=== PATIENT | female | born 1965 | race African-American/Black ===

== ENCOUNTER 2017-12-26 09:50 | Inpatient (IN) ==
[2017-12-26] MEDS ORDERED: SODIUM CHLORIDE 0.9% 2,000 ML IV STA (10:49)
[2017-12-26] MEDS ORDERED: KETOROLAC 30 MG/1 ML VIAL IV STA (10:51)
[2017-12-26] MEDS ORDERED: CLINDAMYCIN INJ 600 MG in PREMIX 1 EACH IV STA (10:52)
[2017-12-26] MEDS ORDERED: MORPHINE 2 MG/1 ML SYRINGE IV STA (10:58)
[2017-12-26] MEDS ORDERED: CLINDAMYCIN INJ 50 ML IV ONE (11:01)
[2017-12-26] MEDS ORDERED: KETOROLAC 30 MG/1 ML VIAL ONE (11:02)
[2017-12-26] MEDS ORDERED: MORPHINE 4 MG/1 ML VIAL ONE (11:02)
[2017-12-26 11:25] LABS: Basophils % 0.4 % (0.0-0.8); Eosinophils # 0.1 10*3/uL (0.0-0.87); Eosinophils % 1.3 % (0.00-10.9); Hematocrit 38.5 VOL% (35.7-47.0); Hemoglobin 12.4 GM/DL (12.0-16.0); Immature Granulocytes % 0.2 %; Immature Granulocytes Absolute 0.02 #; Lymphocytes % 24.6 % (21.3-54.2); Mean Corpuscular HGB Conc 32.2 GM/DL (32-36); Mean Corpuscular Hemoglobin 25 PG (27-34); Mean Corpuscular Volume 78.6 FL (87-102); Mean Platelet Volume 11.3 FL (9.6-12.0); Monocytes # 0.6 10*3/uL (0.11-0.8); Monocytes % 7.2 % (1.7-12.7); Neutrophils # 5.4 10*3/uL (1.4-7.4); Neutrophils % 66.3 % (38.7-73.9); Platelet Count 254 T/CUMM (130-400); Red Cell Distribution Width 13.3 % (9.3-17.3); White Blood Count 8.2 T/CUMM (4-12)
[2017-12-26 11:42] LABS: Calcium 9.4 MG/DL (8.5-10.1)
[2017-12-26 11:43] LABS: Osmolality,Calculated 280.5 MOS/KG (273-304); Potassium 3.6 MMOL/L (3.5-5.1)
[2017-12-26] MEDS: METOPROLOL TARTRATE 5 MG/5 ML VIAL IV SCH ×2 (11:44→12:38)
[2017-12-26 12:01] LABS: Lactic Acid 1.6 MMOL/L (0.4-2.0)
[2017-12-26] MEDS ORDERED: MEPERIDINE 50 MG/1 ML VIAL IM STA (12:41)
[2017-12-26] MEDS ORDERED: hydrALAZINE 20 MG/1 ML VIAL IV STA (12:41)
[2017-12-26] MEDS ORDERED: MEPERIDINE 50 MG/1 ML VIAL ONE (12:44)
[2017-12-26] MEDS ORDERED: hydrALAZINE 20 MG/1 ML VIAL ONE (12:44)
[2017-12-26] MEDS ORDERED: HYDROmorphone 2 MG/1 ML VIAL IV STA (14:14)
[2017-12-26] MEDS ORDERED: HYDROmorphone 2 MG/1 ML VIAL ONE (14:16)
[2017-12-26] MEDS ORDERED: LORazepam 1 MG TABLET PO STA (15:16)
[2017-12-26] MEDS ORDERED: LORazepam 1 MG TABLET ONE (15:49)
[2017-12-26] MEDS ORDERED: DEXTROSE 50% 25 GM/50 ML VIAL IV PRN (15:51)
[2017-12-26] MEDS ORDERED: ACETAMINOPHEN 325 MG TABLET PO PRN (15:51)
[2017-12-26] MEDS ORDERED: GLUCAGON 1 MG VIAL IM PRN (15:51)
[2017-12-26] MEDS ORDERED: ONDANSETRON 4 MG/2 ML VIAL ONE (15:56)
[2017-12-26] MEDS ORDERED: CYCLOBENZAPRINE 10 MG TABLET PO PRN (15:57)
[2017-12-26] MEDS ORDERED: LORazepam 2 MG/1 ML VIAL ONE (15:57)
[2017-12-26] MEDS ORDERED: LABETALOL 20 MG/4 ML SYRINGE IV PRN (16:03)
[2017-12-26] MEDS: INSULIN LISPRO 100 UNIT/ML SUBCUT SCH ×2 (17:02→20:37)
[2017-12-26] MEDS ORDERED: INSULIN LISPRO 100 UNIT/ML ONE (17:04)
[2017-12-26] MEDS ORDERED: CLINDAMYCIN INJ 600 MG in PREMIX 1 EACH IV SCH (19:00)
[2017-12-26] MEDS: MEROPENEM 1,000 MG in SODIUM CHLORIDE 0.9% 100 ML IV SCH (19:07)
[2017-12-26] MEDS: HYDROmorphone 2 MG/1 ML VIAL IV PRN (20:52)
[2017-12-27] MEDS: MEROPENEM 1,000 MG in SODIUM CHLORIDE 0.9% 100 ML IV SCH ×3 (02:09→16:58)
[2017-12-27] MEDS: HYDROmorphone 2 MG/1 ML VIAL IV PRN ×4 (03:57→21:04)
[2017-12-27 05:11] LABS: Basophils % 0.3 % (0.0-0.8); Eosinophils # 0.2 10*3/uL (0.0-0.87); Eosinophils % 1.9 % (0.00-10.9); Hematocrit 35.6 VOL% (35.7-47.0); Hemoglobin 11.5 GM/DL (12.0-16.0); Immature Granulocytes % 0.2 %; Immature Granulocytes Absolute 0.02 #; Lymphocytes # 2.8 10*3/uL (1.4-4.0); Lymphocytes % 30.7 % (21.3-54.2); Mean Corpuscular HGB Conc 32.3 GM/DL (32-36); Mean Corpuscular Hemoglobin 26 PG (27-34); Mean Corpuscular Volume 78.9 FL (87-102); Mean Platelet Volume 11.5 FL (9.6-12.0); Monocytes # 0.7 10*3/uL (0.11-0.8); Monocytes % 7.7 % (1.7-12.7); Neutrophils # 5.3 10*3/uL (1.4-7.4); Neutrophils % 59.2 % (38.7-73.9); Platelet Count 270 T/CUMM (130-400); Red Blood Count 4.51 MC/CUMM (3.8-5.5); Red Cell Distribution Width 13.4 % (9.3-17.3)
[2017-12-27 05:28] LABS: Osmolality,Calculated 278.7 MOS/KG (273-304); Potassium 3.7 MMOL/L (3.5-5.1)
[2017-12-27] MEDS: PANTOPRAZOLE 40 MG TABLET PO SCH (09:11)
[2017-12-27] MEDS: LISINOPRIL 10 MG TABLET PO SCH (09:11)
[2017-12-27] MEDS: INSULIN LISPRO 100 UNIT/ML SUBCUT SCH ×4 (09:12→20:46)
[2017-12-27] MEDS: ONDANSETRON 4 MG/2 ML VIAL IV PRN (09:18)
[2017-12-27] MEDS: sitaGLIPtin 100 MG TABLET PO SCH (14:23)
[2017-12-27] MEDS: CHLORHEXIDINE 0.12% ORAL RINSE 60 ML BOTTLE SWISH/SPIT SCH (21:04)
[2017-12-28] MEDS: HYDROmorphone 2 MG/1 ML VIAL IV PRN ×6 (00:05→21:35)
[2017-12-28] MEDS: MEROPENEM 1,000 MG in SODIUM CHLORIDE 0.9% 100 ML IV SCH ×3 (02:10→18:37)
[2017-12-28 05:09] LABS: Basophils % 0.6 % (0.0-0.8); Eosinophils # 0.2 10*3/uL (0.0-0.87); Eosinophils % 3.2 % (0.00-10.9); Hematocrit 36.7 VOL% (35.7-47.0); Hemoglobin 11.4 GM/DL (12.0-16.0); Immature Granulocytes % 0.3 %; Immature Granulocytes Absolute 0.02 #; Lymphocytes # 2.7 10*3/uL (1.4-4.0); Mean Corpuscular HGB Conc 31.1 GM/DL (32-36); Mean Corpuscular Hemoglobin 25 PG (27-34); Mean Corpuscular Volume 81.2 FL (87-102); Monocytes # 0.6 10*3/uL (0.11-0.8); Monocytes % 8.2 % (1.7-12.7); Neutrophils # 3.3 10*3/uL (1.4-7.4); Neutrophils % 47.7 % (38.7-73.9); Platelet Count 257 T/CUMM (130-400); Red Blood Count 4.52 MC/CUMM (3.8-5.5); Red Cell Distribution Width 13.2 % (9.3-17.3); White Blood Count 6.8 T/CUMM (4-12)
[2017-12-28 05:37] LABS: Calcium 8.9 MG/DL (8.5-10.1); Osmolality,Calculated 281.7 MOS/KG (273-304); Potassium 3.3 MMOL/L (3.5-5.1)
[2017-12-28] MEDS ORDERED: LACTATED RINGERS 1,000 ML IV SCH (07:30)
[2017-12-28] MEDS: INSULIN LISPRO 100 UNIT/ML SUBCUT SCH ×4 (09:57→21:37)
[2017-12-28] MEDS: CHLORHEXIDINE 0.12% ORAL RINSE 60 ML BOTTLE SWISH/SPIT SCH ×2 (10:54→21:35)
[2017-12-28] MEDS: PANTOPRAZOLE 40 MG TABLET PO SCH (10:59)
[2017-12-28] MEDS: sitaGLIPtin 100 MG TABLET PO SCH (10:59)
[2017-12-28] MEDS: LISINOPRIL 10 MG TABLET PO SCH (10:59)
[2017-12-28] MEDS ORDERED: FAMOTIDINE 20 MG TABLET PO ONE (11:00)
[2017-12-28] MEDS ORDERED: DIAZEPAM 5 MG TABLET PO ONE (11:00)
[2017-12-28] MEDS ORDERED: CHLORHEXIDINE 0.12% ORAL RINSE 60 ML BOTTLE SWISH/SPIT ONE (11:09)
[2017-12-28] MEDS ORDERED: LIDOCAINE 1%/EPI INJ 20 ML VIAL ONE (11:09)
[2017-12-28] MEDS ORDERED: MEPERIDINE 25 MG/1 ML VIAL ONE ×2 (12:33→12:49)
[2017-12-28] MEDS ORDERED: hydrALAZINE 20 MG/1 ML VIAL ONE (12:33)
[2017-12-28] MEDS ORDERED: ONDANSETRON 4 MG/2 ML VIAL ONE (12:34)
[2017-12-28] MEDS ORDERED: hydrALAZINE 20 MG/1 ML VIAL IV ONE (12:35)
[2017-12-28] MEDS ORDERED: PROPOFOL 200 MG/20 ML VIAL IV ONE (12:35)
[2017-12-28] MEDS ORDERED: ONDANSETRON 4 MG/2 ML VIAL IV PRN (12:35)
[2017-12-28] MEDS ORDERED: SEVOFLURANE 1 UNIT/15 MINUTE INH ONE (12:36)
[2017-12-28] MEDS ORDERED: fentaNYL 100 MCG/2 ML VIAL ONE (12:36)
[2017-12-28] MEDS ORDERED: SUCCINYLCHOLINE 200 MG/10 ML VIAL ONE (12:36)
[2017-12-28] MEDS ORDERED: MIDAZOLAM 2 MG/2 ML VIAL ONE (12:36)
[2017-12-28] MEDS ORDERED: LABETALOL 100 MG/20 ML VIAL IV ONE (12:36)
[2017-12-28] MEDS: MEPERIDINE 25 MG/1 ML VIAL IV PRN ×2 (12:40→12:50)
[2017-12-28] MEDS ORDERED: PROMETHAZINE 25 MG/1 ML VIAL IM ONE (14:28)
[2017-12-28] MEDS ORDERED: DEXAMETHASONE 4 MG/1 ML VIAL IV ONE (19:01)
[2017-12-28] MEDS: ONDANSETRON 4 MG/2 ML VIAL IV PRN (21:48)
[2017-12-29] MEDS: HYDROmorphone 2 MG/1 ML VIAL IV PRN ×6 (02:22→23:55)
[2017-12-29] MEDS: MEROPENEM 1,000 MG in SODIUM CHLORIDE 0.9% 100 ML IV SCH ×3 (02:23→17:26)
[2017-12-29 05:19] LABS: Basophils % 0.2 % (0.0-0.8); Eosinophils % 0.2 % (0.00-10.9); Hematocrit 34.5 VOL% (35.7-47.0); Hemoglobin 11.2 GM/DL (12.0-16.0); Immature Granulocytes % 0.2 %; Immature Granulocytes Absolute 0.02 #; Lymphocytes # 1.9 10*3/uL (1.4-4.0); Mean Corpuscular HGB Conc 32.5 GM/DL (32-36); Mean Corpuscular Hemoglobin 26 PG (27-34); Mean Corpuscular Volume 78.6 FL (87-102); Mean Platelet Volume 10.6 FL (9.6-12.0); Monocytes # 0.6 10*3/uL (0.11-0.8); Monocytes % 6.3 % (1.7-12.7); Neutrophils # 6.2 10*3/uL (1.4-7.4); Neutrophils % 71.1 % (38.7-73.9); Platelet Count 271 T/CUMM (130-400); Red Blood Count 4.39 MC/CUMM (3.8-5.5); Red Cell Distribution Width 13.4 % (9.3-17.3); White Blood Count 8.7 T/CUMM (4-12)
[2017-12-29 05:45] LABS: Calcium 8.7 MG/DL (8.5-10.1); Potassium 3.6 MMOL/L (3.5-5.1)
[2017-12-29 08:23] LABS: Apearance,Urine Slightly Hazy (Clear); Bilirubin,Urine Negative (Negative); Blood, Urine Negative (Negative); Glucose,Urine (UA) >=500 mg/dL (Negative); Ketones,Urine 20 mg/dL (Negative); Mucus,Urine Occasional /LPF (Occasional); Nitrite,Urine Negative (Negative); Protein,Urine 30 MG/DL; RBC,Urine 1 /HPF (0-4); Squamous Epithelial Cell,Urine Occasional /HPF (0-10); Urine Color Yellow (Yellow); Urine Specific Gravity 1.026 (1.001-1.035); WBC,Urine 2 /HPF (0-6)
[2017-12-29] MEDS: PANTOPRAZOLE 40 MG TABLET PO SCH (09:45)
[2017-12-29] MEDS: LISINOPRIL 10 MG TABLET PO SCH (09:45)
[2017-12-29] MEDS: sitaGLIPtin 100 MG TABLET PO SCH (09:45)
[2017-12-29] MEDS: INSULIN LISPRO 100 UNIT/ML SUBCUT SCH ×4 (09:45→20:29)
[2017-12-29] MEDS: CHLORHEXIDINE 0.12% ORAL RINSE 60 ML BOTTLE SWISH/SPIT SCH ×2 (09:48→20:29)
[2017-12-29] MEDS: amLODIPine 5 MG TABLET PO SCH (13:34)
[2017-12-29 15:11] LABS: Troponin I Only < 0.015 NG/ML (0.00-0.045)
[2017-12-29] MEDS ORDERED: INSULIN GLARGINE 100 UNIT/ML SUBCUT SCH (21:00)
[2017-12-30] MEDS: MEROPENEM 1,000 MG in SODIUM CHLORIDE 0.9% 100 ML IV SCH ×2 (03:18→10:06)
[2017-12-30] MEDS: HYDROmorphone 2 MG/1 ML VIAL IV PRN ×2 (03:18→06:22)
[2017-12-30 06:10] LABS: Troponin I Only < 0.015 NG/ML (0.00-0.045)
[2017-12-30 07:51] VITALS: BP 148/91
[2017-12-30] MEDS: INSULIN LISPRO 100 UNIT/ML SUBCUT SCH (08:28)
[2017-12-30] MEDS: sitaGLIPtin 100 MG TABLET PO SCH (08:29)
[2017-12-30] MEDS: LISINOPRIL 10 MG TABLET PO SCH (08:29)
[2017-12-30] MEDS: amLODIPine 5 MG TABLET PO SCH (08:29)
[2017-12-30] MEDS: PANTOPRAZOLE 40 MG TABLET PO SCH (08:29)
[2017-12-30] MEDS: CHLORHEXIDINE 0.12% ORAL RINSE 60 ML BOTTLE SWISH/SPIT SCH (08:29)
== END 2017-12-30 11:39 | disposition home or self-care (01) | DRG 137 ==
LOC: EDUNIT# → EDBD → N.ED 09:50 → N.EDINP 14:36 → SUATTDRO 14:36 → N.TELEN 17:55
PROVIDERS: ADMIT Family Medicine

== ENCOUNTER 2018-03-05 11:18 | Inpatient (IN) ==
[2018-03-05] MEDS ORDERED: niCARdipine INJ 25 MG in SODIUM CHLORIDE 0.9% 240 ML IV PRN (11:54)
[2018-03-05] MEDS ORDERED: MORPHINE 4 MG/1 ML VIAL IV STA (11:54)
[2018-03-05] MEDS ORDERED: ONDANSETRON 4 MG/2 ML VIAL IV STA (11:54)
[2018-03-05] MEDS ORDERED: MEPERIDINE 25 MG/1 ML VIAL IV STA (12:25)
[2018-03-05] MEDS ORDERED: niCARdipine 25 MG/10 ML VIAL IV ONE (12:30)
[2018-03-05 12:31] LABS: Basophils % 0.5 % (0.0-0.8); Eosinophils # 0.3 10*3/uL (0.0-0.87); Eosinophils % 3.4 % (0.00-10.9); Hematocrit 42.9 VOL% (35.7-47.0); Hemoglobin 13.3 GM/DL (12.0-16.0); Immature Granulocytes % 0.3 %; Immature Granulocytes Absolute 0.02 #; Lymphocytes # 3.4 10*3/uL (1.4-4.0); Lymphocytes % 45.3 % (21.3-54.2); Mean Corpuscular Hemoglobin 25 PG (27-34); Mean Platelet Volume 11.4 FL (9.6-12.0); Monocytes # 0.5 10*3/uL (0.11-0.8); Monocytes % 6.2 % (1.7-12.7); Neutrophils # 3.3 10*3/uL (1.4-7.4); Neutrophils % 44.3 % (38.7-73.9); Platelet Count 256 T/CUMM (130-400); Red Blood Count 5.36 MC/CUMM (3.8-5.5); Red Cell Distribution Width 13.8 % (9.3-17.3); White Blood Count 7.4 T/CUMM (4-12)
[2018-03-05 12:49] LABS: Alanine Aminotransferase 27 U/L (13-56); Albumin 3.9 G/DL (3.4-5.0); Alkaline Phosphatase 140 U/L (45-117); Aspartate Amino Transferase 15 U/L (0-37); Bilirubin,Total < 0.39 MG/DL (0.2-1.0); Blood Urea Nitrogen 17 MG/DL (7-18); Calcium 9.4 MG/DL (8.5-10.1); Glucose 346 MG/DL (74-106); Potassium 4.2 MMOL/L (3.5-5.1); Sodium 136 MMOL/L (136-145); Total Protein 7.8 G/DL (6.4-8.3)
[2018-03-05] MEDS ORDERED: GLUCAGON 1 MG VIAL IM PRN (13:58)
[2018-03-05] MEDS ORDERED: DEXTROSE 50% 25 GM/50 ML VIAL IV PRN (13:58)
[2018-03-05] MEDS ORDERED: ZALEPLON 5 MG CAPSULE PO PRN (13:58)
[2018-03-05] MEDS ORDERED: ALBUTEROL 2.5 MG/3 ML NEB RESP TX PRN (13:58)
[2018-03-05] MEDS ORDERED: amLODIPine 5 MG TABLET PO STA (14:03)
[2018-03-05] MEDS ORDERED: LORazepam 2 MG/1 ML VIAL IV STA (14:05)
[2018-03-05] MEDS: CYCLOBENZAPRINE 10 MG TABLET PO PRN (14:25)
[2018-03-05 15:57] LABS: Troponin I Only < 0.015 NG/ML (0.00-0.045)
[2018-03-05] MEDS: hydrALAZINE 20 MG/1 ML VIAL IV PRN ×2 (16:10→21:46)
[2018-03-05] MEDS: INSULIN LISPRO 100 UNIT/ML SUBCUT SCH ×2 (19:56→20:26)
[2018-03-05 20:09] LABS: Apearance,Urine CLOUDY (Clear); Bacteria,Urine Occasional /HPF (Few); Bilirubin,Urine Negative (Negative); Blood, Urine Small mg/dL (Negative); Glucose,Urine (UA) >=500 mg/dL (Negative); Ketones,Urine 5 mg/dL (Negative); Mucus,Urine Occasional /LPF (Occasional); Nitrite,Urine Negative (Negative); Protein,Urine 30 MG/DL; RBC,Urine 12 /HPF (0-4); Squamous Epithelial Cell,Urine Occasional /HPF (0-10); Urine Color Yellow (Yellow); Urine Specific Gravity 1.027 (1.001-1.035); Urine Urobilinogen < 2.0 EU/DL (0.2-1.0); WBC,Urine 1483 /HPF (0-6)
[2018-03-05] MEDS ORDERED: TEMAZEPAM 15 MG CAPSULE PO SCH (21:00)
[2018-03-05] MEDS ORDERED: ENOXAPARIN 40 MG/0.4 ML SYRINGE SUBCUT SCH (21:00)
[2018-03-05] MEDS ORDERED: MORPHINE 4 MG/1 ML VIAL IV ONE (22:00)
[2018-03-05] MEDS: ONDANSETRON 4 MG/2 ML VIAL IV PRN (22:15)
[2018-03-05 22:47] LABS: Troponin I Only < 0.015 NG/ML (0.00-0.045)
[2018-03-06] MEDS: CYCLOBENZAPRINE 10 MG TABLET PO PRN (00:28)
[2018-03-06] MEDS: ONDANSETRON 4 MG/2 ML VIAL IV PRN ×2 (04:05→09:04)
[2018-03-06 05:38] LABS: Calcium 8.6 MG/DL (8.5-10.1); Osmolality,Calculated 290.8 MOS/KG (273-304); Potassium 3.9 MMOL/L (3.5-5.1); Risk Ratio 5.84; Thyroid Stimulating Hormone 2.71 uIU/ml (0.358-3.74); VLDL CHOLESTEROL 27.6 MG/DL
[2018-03-06] MEDS: hydrALAZINE 20 MG/1 ML VIAL IV PRN (06:08)
[2018-03-06 07:55] VITALS: BP 140/88
[2018-03-06] MEDS ORDERED: amLODIPine 5 MG TABLET PO SCH (09:00)
[2018-03-06] MEDS ORDERED: LISINOPRIL 20 MG TABLET PO SCH (09:00)
[2018-03-06] MEDS ORDERED: PANTOPRAZOLE 40 MG TABLET PO SCH (09:00)
[2018-03-06] MEDS ORDERED: MULTIVITAMIN (CENTRUM) TABLET PO SCH (09:00)
[2018-03-06] MEDS: INSULIN LISPRO 100 UNIT/ML SUBCUT SCH ×2 (09:04→12:28)
[2018-03-06] MEDS ORDERED: metFORMIN 500 MG TABLET PO SCH (10:30)
[2018-03-06] MEDS ORDERED: cefTRIAXone 1,000 MG in SYRINGE 1 EACH IV SCH (11:00)
[2018-03-06] MEDS ORDERED: ATORVASTATIN 20 MG TABLET PO SCH (21:00)
[2018-03-06] MEDS ORDERED: INSULIN GLARGINE 100 UNIT/ML SUBCUT SCH (21:00)
[2018-03-06] MEDS ORDERED: ATORVASTATIN 40 MG TABLET PO SCH (21:00)
== END 2018-03-06 14:10 | disposition home or self-care (01) | DRG 305 ==
LOC: N.ED 11:18 → N.EDINP 13:58 → SUATTDRO 13:58 → N.TELEN 19:10
PROVIDERS: ADMIT Family Medicine; ATTEND Internal Medicine

== ENCOUNTER 2021-09-29 06:41 | Inpatient (IN) ==
[2021-09-29 07:13] LABS: Basophils # 0.1 10*3/uL (0.0-0.2); Basophils % 0.9 % (0.0-0.8); Eosinophils # 0.3 10*3/uL (0.0-0.87); Eosinophils % 4.8 % (0.00-10.9); Hematocrit 39.3 VOL% (35.7-47.0); Immature Granulocytes % 0.1 %; Immature Granulocytes Absolute 0.01 #; Lymphocytes # 2.8 10*3/uL (1.4-4.0); Lymphocytes % 41.2 % (21.3-54.2); Mean Corpuscular HGB Conc 30.5 GM/DL (32-36); Mean Corpuscular Volume 78.3 FL (87-102); Mean Platelet Volume 10.8 FL (9.6-12.0); Monocytes % 6.7 % (1.7-12.7); Neutrophils % 46.3 % (38.7-73.9); Platelet Count 285 T/CUMM (130-400); Red Blood Count 5.02 MC/CUMM (3.8-5.5); Red Cell Distribution Width 16.4 % (9.3-17.3); White Blood Count 6.7 T/CUMM (4-12)
[2021-09-29 07:21] LABS: PT Patient Result 11.6 SECS (10.5-12.0); Partial Thromboplastin Time 28.2 SECS (23.8-32.1)
[2021-09-29] MEDS ORDERED: cloNIDine 0.1 MG TABLET ONE (07:22)
[2021-09-29] MEDS ORDERED: cloNIDine 0.1 MG TABLET PO STA (07:26)
[2021-09-29 07:41] LABS: Platelet Estimate Normal
[2021-09-29 07:42] LABS: Anisocytosis 1+
[2021-09-29 07:54] LABS: Albumin 3.1 G/DL (3.4-5.0); Bilirubin,Total 0.4 MG/DL (0.20-1.00); Osmolality,Calculated 284.4 MOS/KG (273-304); Potassium 4.7 MMOL/L (3.5-5.1); Total Protein 7.3 G/DL (6.4-8.2)
[2021-09-29] MEDS ORDERED: hydrALAZINE 20 MG/1 ML VIAL IV STA ×2 (08:38→08:56)
[2021-09-29] MEDS ORDERED: HYDROmorphone 2 MG/1 ML VIAL IV STA (09:17)
[2021-09-29] MEDS ORDERED: ONDANSETRON 4 MG/2 ML VIAL IV STA (09:17)
[2021-09-29] MEDS ORDERED: ACETAMINOPHEN 325 MG TABLET PO PRN (10:43)
[2021-09-29] MEDS ORDERED: DOCUSATE SODIUM 100 MG CAPSULE PO PRN (10:43)
[2021-09-29] MEDS ORDERED: GLUCAGON 1 MG VIAL IM PRN (10:43)
[2021-09-29] MEDS ORDERED: hydrALAZINE 20 MG/1 ML VIAL IV PRN ×2 (10:43→20:37)
[2021-09-29] MEDS ORDERED: PROMETHAZINE 25 MG TABLET PO PRN (10:50)
[2021-09-29] MEDS ORDERED: lisinopriL 20 MG TABLET PO SCH (11:00)
[2021-09-29] MEDS ORDERED: DEXTROSE 10% 25 GM/250 ML BAG IV PRN (11:12)
[2021-09-29] MEDS: INSULIN REGULAR 100 UNIT/ML SUBCUT SCH ×3 (12:00→21:45)
[2021-09-29] MEDS: carvediloL 25 MG TABLET PO SCH (12:00)
[2021-09-29] MEDS: amLODIPine 10 MG TABLET PO SCH (12:00)
[2021-09-29] MEDS: CHLORTHALIDONE 25 MG TABLET PO SCH (12:00)
[2021-09-29] MEDS: POTASSIUM CHLORIDE 10 MEQ TABLET PO SCH (12:00)
[2021-09-29] MEDS: SPIRONOLACTONE 50 MG TABLET PO SCH (12:00)
[2021-09-29] MEDS ORDERED: KETOROLAC 30 MG/1 ML VIAL IV STA (13:08)
[2021-09-29] MEDS ORDERED: HYDROmorphone 2 MG/1 ML VIAL IV ONE (14:20)
[2021-09-29] MEDS ORDERED: minoxidiL 2.5 MG TABLET PO SCH (15:00)
[2021-09-29] MEDS: FONDAPARINUX 2.5 MG/0.5 ML SYRINGE SUBCUT SCH (16:16)
[2021-09-29] MEDS: HYDROmorphone 2 MG/1 ML VIAL IV PRN (20:00)
[2021-09-29] MEDS ORDERED: minoxidiL 10 MG TABLET PO SCH (21:00)
[2021-09-29] MEDS ORDERED: cloNIDine 0.1 MG TABLET PO SCH ×2 (21:00)
[2021-09-29] MEDS: TEMAZEPAM 15 MG CAPSULE PO SCH (21:40)
[2021-09-29] MEDS: DOCUSATE SODIUM 100 MG CAPSULE PO SCH (21:40)
[2021-09-29] MEDS: ONDANSETRON 4 MG/2 ML VIAL IV PRN (21:53)
[2021-09-29] MEDS: SENNA 8.6 MG TABLET PO SCH (23:23)
[2021-09-29] MEDS: minoxidiL 2.5 MG TABLET PO SCH (23:23)
[2021-09-29] MEDS: POLYETHYLENE GLYCOL POWDER 17 GM PACK PO SCH (23:41)
[2021-09-30] MEDS ORDERED: LABETALOL 20 MG/4 ML SYRINGE IV PRN (01:00)
[2021-09-30] MEDS ORDERED: PROMETHAZINE 25 MG/1 ML VIAL IM PRN (01:21)
[2021-09-30] MEDS: hydrALAZINE 20 MG/1 ML VIAL IV PRN ×4 (02:27→23:45)
[2021-09-30] MEDS: HYDROmorphone 2 MG/1 ML VIAL IV PRN ×2 (04:07→07:27)
[2021-09-30 04:57] LABS: Basophils # 0.1 10*3/uL (0.0-0.2); Basophils % 0.6 % (0.0-0.8); Eosinophils # 0.2 10*3/uL (0.0-0.87); Eosinophils % 2.4 % (0.00-10.9); Hematocrit 37.7 VOL% (35.7-47.0); Hemoglobin 11.4 GM/DL (12.0-16.0); Immature Granulocytes % 0.4 %; Immature Granulocytes Absolute 0.04 #; Lymphocytes # 1.7 10*3/uL (1.4-4.0); Lymphocytes % 18.9 % (21.3-54.2); Mean Corpuscular HGB Conc 30.2 GM/DL (32-36); Mean Corpuscular Volume 79.5 FL (87-102); Monocytes % 4.9 % (1.7-12.7); Neutrophils % 72.8 % (38.7-73.9); Platelet Count 288 T/CUMM (130-400); Red Blood Count 4.74 MC/CUMM (3.8-5.5); Red Cell Distribution Width 16.3 % (9.3-17.3)
[2021-09-30 05:35] LABS: Albumin 2.8 G/DL (3.4-5.0); Bilirubin,Total 0.5 MG/DL (0.20-1.00); Calcium 8.7 MG/DL (8.5-10.1); Osmolality,Calculated 287.3 MOS/KG (273-304); Potassium 3.3 MMOL/L (3.5-5.1); Thyroid Stimulating Hormone 3.14 uIU/ml (0.358-3.74); Total Protein 7.1 G/DL (6.4-8.2)
[2021-09-30] MEDS ORDERED: POTASSIUM CHLORIDE 20 MEQ TABLET PO ONE (07:22)
[2021-09-30] MEDS ORDERED: MAGNESIUM SULF RIDER 4 GM/100 ML PREMIX IV PRN (08:14)
[2021-09-30] MEDS ORDERED: POTASSIUM CHLORIDE RIDER 10 MEQ/100 ML PREMIX IV PRN (08:14)
[2021-09-30] MEDS ORDERED: MAGNESIUM SULF RIDER 2 GM/50 ML PREMIX IV PRN (08:14)
[2021-09-30] MEDS: carvediloL 25 MG TABLET PO SCH (08:27)
[2021-09-30] MEDS ORDERED: cloNIDine 0.2 MG/24 HR PATCH TRANSDERM SCH (09:00)
[2021-09-30] MEDS: PROMETHAZINE 25 MG/1 ML VIAL IM PRN ×2 (09:32→21:00)
[2021-09-30] MEDS: INSULIN REGULAR 100 UNIT/ML SUBCUT SCH ×4 (09:34→20:59)
[2021-09-30] MEDS: ENALAPRIL 2.5 MG/2 ML VIAL IV SCH ×3 (09:41→21:12)
[2021-09-30] MEDS: LINACLOTIDE 145 MCG CAPSULE PO SCH (10:52)
[2021-09-30] MEDS: DOCUSATE SODIUM 100 MG CAPSULE PO SCH ×2 (10:52→20:59)
[2021-09-30] MEDS: CHLORTHALIDONE 25 MG TABLET PO SCH (10:52)
[2021-09-30] MEDS: POLYETHYLENE GLYCOL POWDER 17 GM PACK PO SCH ×2 (10:57→21:00)
[2021-09-30] MEDS: PANTOPRAZOLE 40 MG VIAL IV SCH (12:16)
[2021-09-30] MEDS: ONDANSETRON 4 MG/2 ML VIAL IV PRN (13:36)
[2021-09-30] MEDS: FONDAPARINUX 2.5 MG/0.5 ML SYRINGE SUBCUT SCH (16:57)
[2021-09-30] MEDS: TEMAZEPAM 15 MG CAPSULE PO SCH (20:59)
[2021-09-30] MEDS: SENNA 8.6 MG TABLET PO SCH (20:59)
[2021-09-30] MEDS ORDERED: ATORVASTATIN 40 MG TABLET PO SCH (21:00)
[2021-10-01] MEDS: ENALAPRIL 2.5 MG/2 ML VIAL IV SCH ×2 (01:50→08:41)
[2021-10-01 05:26] LABS: Basophils % 0.4 % (0.0-0.8); Eosinophils # 0.3 10*3/uL (0.0-0.87); Eosinophils % 3.7 % (0.00-10.9); Hematocrit 34.1 VOL% (35.7-47.0); Hemoglobin 10.4 GM/DL (12.0-16.0); Immature Granulocytes % 0.3 %; Immature Granulocytes Absolute 0.02 #; Lymphocytes # 2.1 10*3/uL (1.4-4.0); Lymphocytes % 28.4 % (21.3-54.2); Mean Corpuscular HGB Conc 30.5 GM/DL (32-36); Mean Corpuscular Volume 79.1 FL (87-102); Mean Platelet Volume 10.7 FL (9.6-12.0); Neutrophils % 57.2 % (38.7-73.9); Platelet Count 279 T/CUMM (130-400); Red Blood Count 4.31 MC/CUMM (3.8-5.5); Red Cell Distribution Width 16.5 % (9.3-17.3); White Blood Count 7.2 T/CUMM (4-12)
[2021-10-01 06:06] LABS: Albumin 2.5 G/DL (3.4-5.0); Bilirubin,Total 1.9 MG/DL (0.20-1.00); Calcium 8.3 MG/DL (8.5-10.1); Osmolality,Calculated 285.5 MOS/KG (273-304); Potassium 3.1 MMOL/L (3.5-5.1); Total Protein 6.3 G/DL (6.4-8.2)
[2021-10-01] MEDS ORDERED: SODIUM CHLORIDE 0.9% 500 ML IV SCH (08:00)
[2021-10-01] MEDS: INSULIN REGULAR 100 UNIT/ML SUBCUT SCH ×2 (08:33→11:40)
[2021-10-01] MEDS: PANTOPRAZOLE 40 MG VIAL IV SCH (08:37)
[2021-10-01] MEDS: LINACLOTIDE 145 MCG CAPSULE PO SCH (08:43)
[2021-10-01] MEDS: POTASSIUM CHLORIDE 10 MEQ TABLET PO SCH (08:43)
[2021-10-01] MEDS: CHLORTHALIDONE 25 MG TABLET PO SCH (08:43)
[2021-10-01] MEDS: DOCUSATE SODIUM 100 MG CAPSULE PO SCH (08:43)
[2021-10-01] MEDS: POLYETHYLENE GLYCOL POWDER 17 GM PACK PO SCH (10:30)
[2021-10-01] MEDS: SPIRONOLACTONE 50 MG TABLET PO SCH (10:31)
[2021-10-01] MEDS: amLODIPine 10 MG TABLET PO SCH (10:32)
[2021-10-01] MEDS: minoxidiL 2.5 MG TABLET PO SCH (10:32)
[2021-10-01] MEDS: ONDANSETRON 4 MG/2 ML VIAL IV PRN (11:32)
[2021-10-01 12:08] VITALS: BP 150/77
== END 2021-10-01 13:50 | disposition home or self-care (01) | DRG 305 ==
LOC: N.ED 06:41 → N.EDINP 06:41 → SUATTDRO 10:41 → N.TELEN 20:51
PROVIDERS: ADMIT Hospitalist; ATTEND Internal Medicine

== ENCOUNTER 2021-11-11 20:40 | Observation (INO) ==
[2021-11-11] MEDS ORDERED: MORPHINE 4 MG/1 ML VIAL IV STA (23:57)
[2021-11-11] MEDS ORDERED: ONDANSETRON 4 MG/2 ML VIAL IV STA (23:57)
[2021-11-11] MEDS ORDERED: hydrALAZINE 20 MG/1 ML VIAL IV STA (23:59)
[2021-11-12 01:34] LABS: Alanine Aminotransferase 21 U/L (13-56); Albumin 3.2 G/DL (3.4-5.0); Alkaline Phosphatase 103 U/L (45-117); Aspartate Amino Transferase 11 U/L (0-37); Bilirubin,Total < 0.39 MG/DL (0.20-1.00); Blood Urea Nitrogen 37 MG/DL (7-18); Calcium 9.9 MG/DL (8.5-10.1); Carbon Dioxide 20 MMOL/L (21-32); Estimated Glom Filtration Rate 39 ML/MIN; Glucose 150 MG/DL (74-106); Osmolality,Calculated 279.2 MOS/KG (273-304); Potassium 5.7 MMOL/L (3.5-5.1); Sodium 134 MMOL/L (136-145); Total Protein 7.4 G/DL (6.4-8.2)
[2021-11-12 01:41] LABS: Free T4 (Free Thyroxine) 0.79 NG/DL (0.76-1.46)
[2021-11-12 03:47] LABS: Basophils # 0.1 10*3/uL (0.0-0.2); Basophils % 0.5 % (0.0-0.8); Eosinophils # 0.2 10*3/uL (0.0-0.87); Eosinophils % 2.4 % (0.00-10.9); Hematocrit 51.6 VOL% (35.7-47.0); Immature Granulocytes % 0.6 %; Immature Granulocytes Absolute 0.06 #; Lymphocytes % 31.6 % (21.3-54.2); Mean Corpuscular HGB Conc 28.9 GM/DL (32-36); Mean Corpuscular Volume 84.3 FL (87-102); Mean Platelet Volume 11.2 FL (9.6-12.0); Monocytes % 6.9 % (1.7-12.7); Platelet Count 256 T/CUMM (130-400); Red Blood Count 6.12 MC/CUMM (3.8-5.5); Red Cell Distribution Width 18.6 % (9.3-17.3); White Blood Count 9.5 T/CUMM (4-12)
[2021-11-12 03:52] LABS: Hemoglobin 14.9 GM/DL (12.0-16.0)
[2021-11-12 04:07] LABS: Hypochromia 1+; Microcytosis 1+
[2021-11-12 04:08] LABS: Ovalocytes Slight
[2021-11-12] MEDS ORDERED: CALCIUM CHLORIDE 1,000 MG/10 ML SYRINGE IV STA (04:11)
[2021-11-12] MEDS ORDERED: SODIUM POLYSTYRENE SULFATE 15 GM/60 ML BOTTLE PO STA (04:11)
[2021-11-12] MEDS ORDERED: DEXTROSE 50% 25 GM/50 ML VIAL IV PRN (04:39)
[2021-11-12] MEDS ORDERED: DEXTROSE 10% 250 ML BAG IV PRN (04:39)
[2021-11-12] MEDS ORDERED: ONDANSETRON 4 MG/2 ML VIAL IV PRN (04:39)
[2021-11-12] MEDS ORDERED: GLUCAGON 1 MG VIAL IM PRN ×2 (04:39)
[2021-11-12] MEDS ORDERED: SODIUM ZIRCONIUM CYCLOSILICATE 10 GM PACK PO ONE (04:53)
[2021-11-12] MEDS: SODIUM CHLORIDE 0.9% 1,000 ML IV SCH ×2 (05:45→16:56)
[2021-11-12] MEDS: INSULIN LISPRO 100 UNIT/ML SUBCUT SCH ×4 (08:10→21:16)
[2021-11-12] MEDS: PANTOPRAZOLE 40 MG TABLET PO SCH (09:15)
[2021-11-12] MEDS: hydrALAZINE 20 MG/1 ML VIAL IV PRN (09:16)
[2021-11-12 10:23] LABS: Potassium 6.4 MMOL/L (3.5-5.1)
[2021-11-12] MEDS ORDERED: INSULIN REGULAR 10 UNIT, CALCIUM GLUCONATE 1,000 MG in DEXTROSE 10% 250 ML IV ONE (11:00)
[2021-11-12 13:07] LABS: Amorphous Crystals,Urine Few /HPF (Few); Bacteria,Urine Many /HPF (Few); RBC,Urine 32 /HPF (0-4); Squamous Epithelial Cell,Urine Many /HPF (0-10)
[2021-11-12 13:08] LABS: Urine Appearance Cloudy (Clear); Urine Color Yellow (Yellow); Urine pH 5.5 (4.5-8.0)
[2021-11-12 13:09] LABS: Bilirubin,Urine Negative (Negative); Blood, Urine Trace mg/dL (Negative); Glucose,Urine (UA) Negative (Negative); Ketones,Urine Trace mg/dL (Negative); Nitrite,Urine Negative (Negative); Protein,Urine 3+ MG/DL; Urine Specific Gravity 1.024 (1.001-1.035); Urine Urobilinogen 0.2 EU/DL (<2.0)
[2021-11-12 13:52] LABS: Calcium 9.5 MG/DL (8.5-10.1); Osmolality,Calculated 290.5 MOS/KG (273-304); Potassium 5.6 MMOL/L (3.5-5.1)
[2021-11-12] MEDS: SODIUM ZIRCONIUM CYCLOSILICATE 10 GM PACK PO SCH ×2 (14:59→20:16)
[2021-11-12] MEDS: cloNIDine 0.1 MG TABLET PO SCH (19:20)
[2021-11-12] MEDS ORDERED: diphenhydrAMINE CAP 25 MG CAPSULE PO PRN (20:25)
[2021-11-12] MEDS ORDERED: ENOXAPARIN 40 MG/0.4 ML SYRINGE SUBCUT SCH (21:00)
[2021-11-12] MEDS ORDERED: TEMAZEPAM 15 MG CAPSULE PO SCH (21:00)
[2021-11-12] MEDS ORDERED: cloNIDine 0.1 MG TABLET PO SCH (21:00)
[2021-11-13] MEDS: SODIUM CHLORIDE 0.9% 1,000 ML IV SCH ×2 (02:05→12:05)
[2021-11-13] MEDS: ACETAMINOPHEN 325 MG TABLET PO PRN ×2 (04:55→14:21)
[2021-11-13] MEDS: hydrALAZINE 20 MG/1 ML VIAL IV PRN (05:25)
[2021-11-13 05:52] LABS: Calcium 8.9 MG/DL (8.5-10.1); Osmolality,Calculated 289.4 MOS/KG (273-304)
[2021-11-13 06:36] LABS: Basophils % 0.4 % (0.0-0.8); Eosinophils # 0.5 10*3/uL (0.0-0.87); Eosinophils % 4.9 % (0.00-10.9); Hemoglobin 11.7 GM/DL (12.0-16.0); Immature Granulocytes % 0.3 %; Immature Granulocytes Absolute 0.03 #; Lymphocytes % 30.5 % (21.3-54.2); Mean Corpuscular HGB Conc 29.7 GM/DL (32-36); Mean Corpuscular Volume 81.6 FL (87-102); Monocytes % 7.7 % (1.7-12.7); Neutrophils % 56.2 % (38.7-73.9); Platelet Count 333 T/CUMM (130-400); Red Blood Count 4.83 MC/CUMM (3.8-5.5); Red Cell Distribution Width 17.8 % (9.3-17.3); White Blood Count 9.7 T/CUMM (4-12)
[2021-11-13 06:37] LABS: Hematocrit 39.4 VOL% (35.7-47.0)
[2021-11-13] MEDS ORDERED: ATORVASTATIN 40 MG TABLET PO SCH (09:00)
[2021-11-13] MEDS ORDERED: carvediloL 25 MG TABLET PO SCH (09:00)
[2021-11-13] MEDS: cloNIDine 0.1 MG TABLET PO SCH (09:52)
[2021-11-13] MEDS: PANTOPRAZOLE 40 MG TABLET PO SCH (09:52)
[2021-11-13] MEDS: SODIUM ZIRCONIUM CYCLOSILICATE 10 GM PACK PO SCH ×2 (09:53→15:25)
[2021-11-13] MEDS: INSULIN LISPRO 100 UNIT/ML SUBCUT SCH ×2 (09:53→15:25)
[2021-11-13] MEDS ORDERED: CIPROFLOXACIN 500 MG TABLET PO SCH (12:00)
[2021-11-13 12:06] VITALS: BP 152/90
[2021-11-13 13:40] LABS: Protein/Creatinine Ratio,Urine 0.9 RATIO
== END 2021-11-13 16:08 | disposition home or self-care (01) ==
LOC: N.ED 20:40 → INTOOBSV 11-12 04:39 → N.EDINP 11-12 04:39 → N.TELEN 11-12 17:34
PROVIDERS: ADMIT Internal Medicine; ATTEND Internal Medicine

== ENCOUNTER 2022-04-01 10:16 | Inpatient (IN) ==
[2022-04-01] MEDS ORDERED: FUROSEMIDE 40 MG/4 ML VIAL IV STA (12:12)
[2022-04-01 12:28] LABS: Basophils % 0.2 % (0.0-0.8); Eosinophils # 0.3 10*3/uL (0.0-0.87); Eosinophils % 2.2 % (0.00-10.9); Hematocrit 31.5 VOL% (35.7-47.0); Immature Granulocytes % 0.4 %; Immature Granulocytes Absolute 0.05 #; Lymphocytes # 0.7 10*3/uL (1.4-4.0); Lymphocytes % 6.1 % (21.3-54.2); Mean Corpuscular HGB Conc 28.6 GM/DL (32-36); Mean Corpuscular Volume 87.7 FL (87-102); Mean Platelet Volume 11.7 FL (9.6-12.0); Monocytes # 0.8 10*3/uL (0.11-0.8); Monocytes % 6.5 % (1.7-12.7); NRBC # 0.02 10*3/uL; Neutrophils % 84.6 % (38.7-73.9); Platelet Count 274 T/CUMM (130-400); Red Blood Count 3.59 MC/CUMM (3.8-5.5); Red Cell Distribution Width 16.6 % (9.3-17.3); White Blood Count 12.1 T/CUMM (4-12)
[2022-04-01 12:38] LABS: PT Patient Result 11.2 SECS (10.5-12.0); Partial Thromboplastin Time 25.2 SECS (23.7-32.9)
[2022-04-01 12:42] LABS: Alanine Aminotransferase 14 U/L (13-56); Albumin 2.7 G/DL (3.4-5.0); Alkaline Phosphatase 115 U/L (45-117); Aspartate Amino Transferase 17 U/L (0-37); Blood Urea Nitrogen 30 MG/DL (7-18); Calcium 9.3 MG/DL (8.5-10.1); Carbon Dioxide 22 MMOL/L (21-32); Chloride 111 MMOL/L (98-107); Glucose 118 MG/DL (74-106); Osmolality,Calculated 285.4 MOS/KG (273-304); Potassium 3.6 MMOL/L (3.5-5.1); Sodium 140 MMOL/L (136-145); Total Protein 7.2 G/DL (6.4-8.2)
[2022-04-01] MEDS ORDERED: hydrALAZINE 20 MG/1 ML VIAL IV STA (12:52)
[2022-04-01] MEDS ORDERED: cefTRIAXone 1,000 MG in SODIUM CHLORIDE 0.9% 100 ML IV STA (13:12)
[2022-04-01] MEDS ORDERED: AZITHROMYCIN INJ 500 MG in SODIUM CHLORIDE 0.9% 250 ML IV STA (13:12)
[2022-04-01] MEDS ORDERED: ONDANSETRON 4 MG/2 ML VIAL IV ONE (13:48)
[2022-04-01] MEDS ORDERED: HYDROmorphone 1 MG/1 ML SYRINGE IV STA (13:48)
[2022-04-01] MEDS ORDERED: ONDANSETRON 4 MG/2 ML VIAL IV PRN (14:50)
[2022-04-01] MEDS ORDERED: GLUCAGON 1 MG VIAL IM PRN ×2 (14:50)
[2022-04-01] MEDS ORDERED: ACETAMINOPHEN 325 MG TABLET PO PRN (14:50)
[2022-04-01] MEDS ORDERED: DEXTROSE 50% 25 GM/50 ML VIAL IV PRN (14:50)
[2022-04-01] MEDS ORDERED: DEXTROSE 10% 250 ML BAG IV PRN (15:04)
[2022-04-01] MEDS: hydrALAZINE 20 MG/1 ML VIAL IV PRN (16:18)
[2022-04-01] MEDS: methylPREDNISolone SOD SUC 40 MG/1 ML VIAL IV SCH (16:19)
[2022-04-01] MEDS: INSULIN LISPRO 100 UNIT/ML SUBCUT SCH ×2 (16:19→20:37)
[2022-04-01] MEDS ORDERED: MORPHINE 2 MG/1 ML SYRINGE IV PRN (18:35)
[2022-04-01] MEDS: MORPHINE 2 MG/1 ML SYRINGE IV PRN ×2 (18:57→23:04)
[2022-04-01] MEDS: ALBUTEROL/IPRATROPIUM 3 ML NEB RESP TX SCH (19:30)
[2022-04-01] MEDS ORDERED: carvediloL 25 MG TABLET PO SCH (21:00)
[2022-04-01] MEDS: cloNIDine 0.1 MG TABLET PO SCH (21:22)
[2022-04-01] MEDS: AMITRIPTYLINE 50 MG TABLET PO SCH (21:22)
[2022-04-01] MEDS: TEMAZEPAM 15 MG CAPSULE PO SCH (21:22)
[2022-04-01] MEDS: GABAPENTIN 300 MG CAPSULE PO SCH (21:22)
[2022-04-01] MEDS: ENOXAPARIN 40 MG/0.4 ML SYRINGE SUBCUT SCH (21:23)
[2022-04-02] MEDS: ALBUTEROL/IPRATROPIUM 3 ML NEB RESP TX SCH ×4 (00:35→19:35)
[2022-04-02] MEDS: methylPREDNISolone SOD SUC 40 MG/1 ML VIAL IV SCH (03:58)
[2022-04-02] MEDS: hydrALAZINE 20 MG/1 ML VIAL IV PRN (03:59)
[2022-04-02] MEDS: MORPHINE 2 MG/1 ML SYRINGE IV PRN ×5 (04:02→21:34)
[2022-04-02 06:10] LABS: Basophils % 0.1 % (0.0-0.8); Hematocrit 30.6 VOL% (35.7-47.0); Hemoglobin 9.1 GM/DL (12.0-16.0); Immature Granulocytes % 0.6 %; Immature Granulocytes Absolute 0.07 #; Lymphocytes # 0.6 10*3/uL (1.4-4.0); Lymphocytes % 5.6 % (21.3-54.2); Mean Corpuscular HGB Conc 29.7 GM/DL (32-36); Mean Platelet Volume 11.9 FL (9.6-12.0); Monocytes # 0.3 10*3/uL (0.11-0.8); Monocytes % 2.6 % (1.7-12.7); NRBC # 0.02 10*3/uL; Neutrophils % 91.1 % (38.7-73.9); Platelet Count 317 T/CUMM (130-400); Red Cell Distribution Width 16.4 % (9.3-17.3)
[2022-04-02 06:29] LABS: Osmolality,Calculated 293.7 MOS/KG (273-304); Potassium 3.8 MMOL/L (3.5-5.1)
[2022-04-02 06:31] LABS: % Iron Saturation 4.9 % (18-50)
[2022-04-02 06:32] LABS: Hypochromia Slight; Lymphocytes 4 % (20-55); Microcytosis Slight; Platelet Estimate Adequate; Total Cells Counted 100
[2022-04-02] MEDS: PANTOPRAZOLE 40 MG TABLET PO SCH (08:31)
[2022-04-02] MEDS: carvediloL 25 MG TABLET PO SCH ×2 (08:31→17:21)
[2022-04-02] MEDS: CLOPIDOGREL 75 MG TABLET PO SCH (08:31)
[2022-04-02] MEDS: ROSUVASTATIN 10 MG TABLET PO SCH (08:31)
[2022-04-02] MEDS: GABAPENTIN 300 MG CAPSULE PO SCH ×3 (08:31→21:26)
[2022-04-02] MEDS: guaiFENesin/DM ER 600-30 MG TABLET PO PRN ×2 (08:31→21:26)
[2022-04-02] MEDS: INSULIN LISPRO 100 UNIT/ML SUBCUT SCH ×4 (08:32→21:26)
[2022-04-02] MEDS: cloNIDine 0.1 MG TABLET PO SCH (11:42)
[2022-04-02] MEDS ORDERED: MAGNESIUM SULF RIDER 2 GM/50 ML PREMIX IV ONE (13:50)
[2022-04-02] MEDS: cefTRIAXone 1,000 MG in SODIUM CHLORIDE 0.9% 100 ML IV SCH (14:22)
[2022-04-02] MEDS: AZITHROMYCIN INJ 500 MG in SODIUM CHLORIDE 0.9% 250 ML IV SCH (17:16)
[2022-04-02] MEDS: AMITRIPTYLINE 50 MG TABLET PO SCH (21:26)
[2022-04-02] MEDS: TEMAZEPAM 15 MG CAPSULE PO SCH (21:26)
[2022-04-02] MEDS: ENOXAPARIN 40 MG/0.4 ML SYRINGE SUBCUT SCH (21:27)
[2022-04-03] MEDS: ALBUTEROL/IPRATROPIUM 3 ML NEB RESP TX SCH ×4 (00:30→19:37)
[2022-04-03 08:03] LABS: Basophils % 0.1 % (0.0-0.8); Eosinophils % 0.2 % (0.00-10.9); Hematocrit 29.3 VOL% (35.7-47.0); Hemoglobin 8.7 GM/DL (12.0-16.0); Immature Granulocytes % 0.6 %; Immature Granulocytes Absolute 0.08 #; Lymphocytes # 1.7 10*3/uL (1.4-4.0); Lymphocytes % 13.3 % (21.3-54.2); Mean Corpuscular HGB Conc 29.7 GM/DL (32-36); Mean Corpuscular Volume 84.7 FL (87-102); Mean Platelet Volume 11.9 FL (9.6-12.0); Monocytes # 1.5 10*3/uL (0.11-0.8); Monocytes % 11.8 % (1.7-12.7); NRBC # 0.06 10*3/uL; Platelet Count 309 T/CUMM (130-400); Red Blood Count 3.46 MC/CUMM (3.8-5.5); Red Cell Distribution Width 16.7 % (9.3-17.3); White Blood Count 12.5 T/CUMM (4-12)
[2022-04-03] MEDS: CLOPIDOGREL 75 MG TABLET PO SCH (08:33)
[2022-04-03] MEDS: GABAPENTIN 300 MG CAPSULE PO SCH ×3 (08:33→20:40)
[2022-04-03] MEDS: INSULIN LISPRO 100 UNIT/ML SUBCUT SCH ×4 (08:33→20:39)
[2022-04-03] MEDS: carvediloL 25 MG TABLET PO SCH ×2 (08:33→16:47)
[2022-04-03] MEDS: PANTOPRAZOLE 40 MG TABLET PO SCH (08:33)
[2022-04-03] MEDS: ROSUVASTATIN 10 MG TABLET PO SCH (08:34)
[2022-04-03] MEDS: guaiFENesin/DM ER 600-30 MG TABLET PO PRN (08:38)
[2022-04-03] MEDS: MORPHINE 2 MG/1 ML SYRINGE IV PRN ×3 (08:39→20:41)
[2022-04-03 08:42] LABS: Alanine Aminotransferase 26 U/L (13-56); Albumin 2.5 G/DL (3.4-5.0); Alkaline Phosphatase 115 U/L (45-117); Aspartate Amino Transferase 34 U/L (0-37); Bilirubin,Total < 0.39 MG/DL (0.20-1.00); Blood Urea Nitrogen 58 MG/DL (7-18); Carbon Dioxide 20 MMOL/L (21-32); Chloride 108 MMOL/L (98-107); Glucose 239 MG/DL (74-106); Osmolality,Calculated 300.5 MOS/KG (273-304); Potassium 4.1 MMOL/L (3.5-5.1); Sodium 139 MMOL/L (136-145); Total Protein 7.1 G/DL (6.4-8.2)
[2022-04-03] MEDS: cefTRIAXone 1,000 MG in SODIUM CHLORIDE 0.9% 100 ML IV SCH (14:47)
[2022-04-03] MEDS: AZITHROMYCIN INJ 500 MG in SODIUM CHLORIDE 0.9% 250 ML IV SCH (15:31)
[2022-04-03] MEDS: AMITRIPTYLINE 50 MG TABLET PO SCH (20:40)
[2022-04-03] MEDS: TEMAZEPAM 15 MG CAPSULE PO SCH (20:40)
[2022-04-03] MEDS: ENOXAPARIN 40 MG/0.4 ML SYRINGE SUBCUT SCH (20:40)
[2022-04-03] MEDS: hydrALAZINE 20 MG/1 ML VIAL IV PRN (23:00)
[2022-04-04] MEDS: ALBUTEROL/IPRATROPIUM 3 ML NEB RESP TX SCH ×4 (00:30→19:09)
[2022-04-04] MEDS: MORPHINE 2 MG/1 ML SYRINGE IV PRN ×3 (00:39→09:16)
[2022-04-04 04:58] LABS: Basophils % 0.4 % (0.0-0.8); Eosinophils # 0.6 10*3/uL (0.0-0.87); Eosinophils % 5.8 % (0.00-10.9); Hematocrit 29.5 VOL% (35.7-47.0); Hemoglobin 8.8 GM/DL (12.0-16.0); Immature Granulocytes % 0.5 %; Immature Granulocytes Absolute 0.05 #; Lymphocytes # 2.7 10*3/uL (1.4-4.0); Lymphocytes % 25.7 % (21.3-54.2); Mean Corpuscular HGB Conc 29.8 GM/DL (32-36); Mean Corpuscular Volume 84.3 FL (87-102); Mean Platelet Volume 11.3 FL (9.6-12.0); Monocytes % 9.7 % (1.7-12.7); NRBC # 0.05 10*3/uL; Neutrophils % 57.9 % (38.7-73.9); Platelet Count 318 T/CUMM (130-400); Red Cell Distribution Width 16.5 % (9.3-17.3); White Blood Count 10.4 T/CUMM (4-12)
[2022-04-04 05:12] LABS: Alanine Aminotransferase 33 U/L (13-56); Albumin 2.3 G/DL (3.4-5.0); Alkaline Phosphatase 117 U/L (45-117); Aspartate Amino Transferase 32 U/L (0-37); Bilirubin,Total < 0.39 MG/DL (0.20-1.00); Blood Urea Nitrogen 53 MG/DL (7-18); Calcium 8.9 MG/DL (8.5-10.1); Carbon Dioxide 21 MMOL/L (21-32); Chloride 112 MMOL/L (98-107); Glucose 139 MG/DL (74-106); Osmolality,Calculated 298.1 MOS/KG (273-304); Potassium 3.4 MMOL/L (3.5-5.1); Sodium 142 MMOL/L (136-145); Total Protein 6.6 G/DL (6.4-8.2)
[2022-04-04] MEDS: carvediloL 25 MG TABLET PO SCH ×2 (08:21→16:13)
[2022-04-04] MEDS: PANTOPRAZOLE 40 MG TABLET PO SCH (08:21)
[2022-04-04] MEDS: CLOPIDOGREL 75 MG TABLET PO SCH (08:21)
[2022-04-04] MEDS: ROSUVASTATIN 10 MG TABLET PO SCH (08:21)
[2022-04-04] MEDS: GABAPENTIN 300 MG CAPSULE PO SCH ×3 (08:21→20:44)
[2022-04-04] MEDS: INSULIN LISPRO 100 UNIT/ML SUBCUT SCH ×4 (08:22→21:17)
[2022-04-04] MEDS: metFORMIN 500 MG TABLET PO SCH ×2 (08:24→16:13)
[2022-04-04] MEDS: cefTRIAXone 1,000 MG in SODIUM CHLORIDE 0.9% 100 ML IV SCH (15:08)
[2022-04-04] MEDS: oxyCODONE/ACETAMINOPHEN 5-325 MG TABLET PO PRN ×2 (15:08→21:01)
[2022-04-04] MEDS: AZITHROMYCIN INJ 500 MG in SODIUM CHLORIDE 0.9% 250 ML IV SCH (16:12)
[2022-04-04] MEDS: AMITRIPTYLINE 50 MG TABLET PO SCH (20:44)
[2022-04-04] MEDS: ENOXAPARIN 40 MG/0.4 ML SYRINGE SUBCUT SCH (20:45)
[2022-04-04] MEDS: TEMAZEPAM 15 MG CAPSULE PO SCH (21:07)
[2022-04-05] MEDS: ALBUTEROL/IPRATROPIUM 3 ML NEB RESP TX SCH ×4 (00:36→19:14)
[2022-04-05] MEDS: oxyCODONE/ACETAMINOPHEN 5-325 MG TABLET PO PRN (05:11)
[2022-04-05 05:16] LABS: Basophils % 0.5 % (0.0-0.8); Eosinophils # 0.6 10*3/uL (0.0-0.87); Eosinophils % 7.2 % (0.00-10.9); Hematocrit 28.6 VOL% (35.7-47.0); Hemoglobin 8.4 GM/DL (12.0-16.0); Immature Granulocytes % 0.3 %; Immature Granulocytes Absolute 0.03 #; Lymphocytes # 2.2 10*3/uL (1.4-4.0); Lymphocytes % 24.9 % (21.3-54.2); Mean Corpuscular HGB Conc 29.4 GM/DL (32-36); Mean Corpuscular Volume 84.6 FL (87-102); Mean Platelet Volume 11.2 FL (9.6-12.0); Monocytes % 11.7 % (1.7-12.7); NRBC # 0.03 10*3/uL; Neutrophils % 55.4 % (38.7-73.9); Platelet Count 299 T/CUMM (130-400); Red Blood Count 3.38 MC/CUMM (3.8-5.5); Red Cell Distribution Width 16.7 % (9.3-17.3); White Blood Count 8.6 T/CUMM (4-12)
[2022-04-05 05:43] LABS: Alanine Aminotransferase 23 U/L (13-56); Albumin 2.1 G/DL (3.4-5.0); Alkaline Phosphatase 106 U/L (45-117); Aspartate Amino Transferase 17 U/L (0-37); Bilirubin,Total < 0.39 MG/DL (0.20-1.00); Blood Urea Nitrogen 49 MG/DL (7-18); Calcium 8.6 MG/DL (8.5-10.1); Carbon Dioxide 21 MMOL/L (21-32); Chloride 112 MMOL/L (98-107); Glucose 149 MG/DL (74-106); Osmolality,Calculated 298.1 MOS/KG (273-304); Potassium 3.6 MMOL/L (3.5-5.1); Sodium 142 MMOL/L (136-145); Total Protein 6.3 G/DL (6.4-8.2)
[2022-04-05] MEDS: metFORMIN 500 MG TABLET PO SCH ×2 (08:56→17:32)
[2022-04-05] MEDS: ROSUVASTATIN 10 MG TABLET PO SCH (08:56)
[2022-04-05] MEDS: CLOPIDOGREL 75 MG TABLET PO SCH (08:56)
[2022-04-05] MEDS: carvediloL 25 MG TABLET PO SCH ×2 (08:56→17:32)
[2022-04-05] MEDS: guaiFENesin/DM ER 600-30 MG TABLET PO PRN (08:56)
[2022-04-05] MEDS: PANTOPRAZOLE 40 MG TABLET PO SCH (08:56)
[2022-04-05] MEDS: INSULIN LISPRO 100 UNIT/ML SUBCUT SCH ×4 (08:57→20:58)
[2022-04-05] MEDS: GABAPENTIN 300 MG CAPSULE PO SCH ×3 (08:57→20:55)
[2022-04-05] MEDS: HYDROmorphone 1 MG/1 ML SYRINGE IV PRN ×4 (09:43→22:39)
[2022-04-05] MEDS: hydrALAZINE 20 MG/1 ML VIAL IV PRN (11:06)
[2022-04-05] MEDS ORDERED: oxyCODONE/ACETAMINOPHEN 5-325 MG TABLET PO PRN (11:15)
[2022-04-05] MEDS: cefTRIAXone 1,000 MG in SODIUM CHLORIDE 0.9% 100 ML IV SCH (14:01)
[2022-04-05] MEDS: AZITHROMYCIN INJ 500 MG in SODIUM CHLORIDE 0.9% 250 ML IV SCH (15:47)
[2022-04-05] MEDS: TEMAZEPAM 15 MG CAPSULE PO SCH (20:55)
[2022-04-05] MEDS: AMITRIPTYLINE 50 MG TABLET PO SCH (20:55)
[2022-04-05] MEDS: ENOXAPARIN 40 MG/0.4 ML SYRINGE SUBCUT SCH (20:56)
[2022-04-06] MEDS: ALBUTEROL/IPRATROPIUM 3 ML NEB RESP TX SCH ×3 (00:10→13:58)
[2022-04-06 04:29] LABS: Basophils % 0.5 % (0.0-0.8); Eosinophils # 0.6 10*3/uL (0.0-0.87); Eosinophils % 7.6 % (0.00-10.9); Immature Granulocytes % 0.4 %; Immature Granulocytes Absolute 0.03 #; Lymphocytes # 2.1 10*3/uL (1.4-4.0); Lymphocytes % 25.1 % (21.3-54.2); Mean Corpuscular HGB Conc 29.6 GM/DL (32-36); Mean Corpuscular Volume 84.1 FL (87-102); Mean Platelet Volume 10.8 FL (9.6-12.0); Monocytes # 1.1 10*3/uL (0.11-0.8); Monocytes % 12.8 % (1.7-12.7); NRBC # 0.04 10*3/uL; Neutrophils % 53.6 % (38.7-73.9); Platelet Count 287 T/CUMM (130-400); Red Blood Count 3.21 MC/CUMM (3.8-5.5); Red Cell Distribution Width 16.5 % (9.3-17.3); White Blood Count 8.2 T/CUMM (4-12)
[2022-04-06] MEDS: HYDROmorphone 1 MG/1 ML SYRINGE IV PRN ×2 (04:32→10:02)
[2022-04-06] MEDS: hydrALAZINE 20 MG/1 ML VIAL IV PRN (04:32)
[2022-04-06 04:55] LABS: Alanine Aminotransferase 20 U/L (13-56); Albumin 2.1 G/DL (3.4-5.0); Alkaline Phosphatase 94 U/L (45-117); Aspartate Amino Transferase 12 U/L (0-37); Bilirubin,Total < 0.39 MG/DL (0.20-1.00); Blood Urea Nitrogen 35 MG/DL (7-18); Calcium 8.5 MG/DL (8.5-10.1); Carbon Dioxide 20 MMOL/L (21-32); Chloride 112 MMOL/L (98-107); Glucose 165 MG/DL (74-106); Osmolality,Calculated 292.3 MOS/KG (273-304); Potassium 3.8 MMOL/L (3.5-5.1); Sodium 141 MMOL/L (136-145)
[2022-04-06] MEDS: INSULIN LISPRO 100 UNIT/ML SUBCUT SCH ×2 (08:03→12:18)
[2022-04-06] MEDS: GABAPENTIN 300 MG CAPSULE PO SCH ×2 (08:52→15:24)
[2022-04-06] MEDS: metFORMIN 500 MG TABLET PO SCH (08:52)
[2022-04-06] MEDS: carvediloL 25 MG TABLET PO SCH (08:52)
[2022-04-06] MEDS: ROSUVASTATIN 10 MG TABLET PO SCH (08:52)
[2022-04-06] MEDS: PANTOPRAZOLE 40 MG TABLET PO SCH (08:52)
[2022-04-06] MEDS: CLOPIDOGREL 75 MG TABLET PO SCH (08:53)
[2022-04-06] MEDS ORDERED: AZITHROMYCIN 250 MG TABLET PO SCH (11:00)
[2022-04-06] MEDS ORDERED: CEFUROXIME 500 MG TABLET PO SCH (11:00)
[2022-04-06 12:20] VITALS: BP 179/100
== END 2022-04-06 16:57 | disposition home health service (06) | DRG 193 ==
LOC: N.ED 10:16 → SUATTDRO 14:46 → N.EDINP 14:46 → N.3E 16:30
PROVIDERS: ADMIT Family Medicine; ATTEND Internal Medicine

== ENCOUNTER 2022-07-01 10:58 | Observation (INO) ==
[2022-07-01] MEDS ORDERED: hydrALAZINE 20 MG/1 ML VIAL IV STA (11:28)
[2022-07-01] MEDS ORDERED: cloNIDine 0.1 MG TABLET PO STA ×2 (11:28→13:39)
[2022-07-01] MEDS ORDERED: ALBUTEROL NEB SOLN 5 MG/ML 20 ML/BOTTLE CONT NEB STA (11:29)
[2022-07-01] MEDS ORDERED: FUROSEMIDE 40 MG/4 ML VIAL IV STA (11:29)
[2022-07-01 12:11] LABS: Albumin 2.8 G/DL (3.4-5.0); Bilirubin,Total 0.4 MG/DL (0.20-1.00); Calcium 9.1 MG/DL (8.5-10.1); Osmolality,Calculated 284.7 MOS/KG (273-304); Potassium 4.5 MMOL/L (3.5-5.1); Total Protein 6.3 G/DL (6.4-8.2)
[2022-07-01 12:15] LABS: Basophils % 0.3 % (0.0-0.8); Eosinophils # 0.2 10*3/uL (0.0-0.87); Eosinophils % 2.2 % (0.00-10.9); Hematocrit 37.9 VOL% (35.7-47.0); Hemoglobin 11.4 GM/DL (12.0-16.0); Immature Granulocytes % 0.4 %; Immature Granulocytes Absolute 0.04 #; Lymphocytes # 1.5 10*3/uL (1.4-4.0); Lymphocytes % 14.8 % (21.3-54.2); Mean Corpuscular HGB Conc 30.1 GM/DL (32-36); Monocytes # 0.7 10*3/uL (0.11-0.8); Monocytes % 6.9 % (1.7-12.7); Neutrophils % 75.4 % (38.7-73.9); Platelet Count 246 T/CUMM (130-400); Red Blood Count 4.68 MC/CUMM (3.8-5.5); Red Cell Distribution Width 18.5 % (9.3-17.3); White Blood Count 10.1 T/CUMM (4-12)
[2022-07-01] MEDS ORDERED: ONDANSETRON 4 MG/2 ML VIAL IV STA (12:16)
[2022-07-01 12:39] LABS: Anisocytosis 1+; Hypochromia 1+; Platelet Estimate Adequate
[2022-07-01 12:40] LABS: Polychromasia 1+
[2022-07-01] MEDS ORDERED: LABETALOL 20 MG/4 ML SYRINGE IV STA (14:35)
[2022-07-01] MEDS ORDERED: ONDANSETRON 4 MG/2 ML VIAL IV PRN (14:45)
[2022-07-01] MEDS ORDERED: GLUCAGON 1 MG VIAL IM PRN (14:45)
[2022-07-01] MEDS ORDERED: DEXTROSE 10% 250 ML BAG IV PRN (15:06)
[2022-07-01] MEDS: carvediloL 25 MG TABLET PO SCH ×2 (15:27→21:28)
[2022-07-01] MEDS ORDERED: LABETALOL 20 MG/4 ML SYRINGE IV PRN (15:45)
[2022-07-01] MEDS: INSULIN LISPRO 100 UNIT/ML SUBCUT SCH ×2 (17:40→21:27)
[2022-07-01] MEDS: ALBUTEROL/IPRATROPIUM 3 ML NEB RESP TX SCH (19:22)
[2022-07-01] MEDS ORDERED: metFORMIN 500 MG TABLET PO SCH (21:00)
[2022-07-01] MEDS: FUROSEMIDE 40 MG/4 ML VIAL IV SCH (21:26)
[2022-07-01] MEDS: GABAPENTIN 300 MG CAPSULE PO SCH (21:27)
[2022-07-01] MEDS: AMITRIPTYLINE 50 MG TABLET PO SCH (21:28)
[2022-07-01] MEDS: TEMAZEPAM 15 MG CAPSULE PO SCH (21:28)
[2022-07-01] MEDS: cloNIDine 0.1 MG TABLET PO SCH (21:28)
[2022-07-02] MEDS: ALBUTEROL/IPRATROPIUM 3 ML NEB RESP TX SCH ×4 (00:16→19:46)
[2022-07-02] MEDS: FUROSEMIDE 40 MG/4 ML VIAL IV SCH (03:24)
[2022-07-02 05:18] LABS: Basophils % 0.6 % (0.0-0.8); Eosinophils # 0.2 10*3/uL (0.0-0.87); Eosinophils % 3.3 % (0.00-10.9); Hemoglobin 9.8 GM/DL (12.0-16.0); Immature Granulocytes % 0.3 %; Immature Granulocytes Absolute 0.02 #; Lymphocytes # 2.2 10*3/uL (1.4-4.0); Lymphocytes % 32.3 % (21.3-54.2); Mean Corpuscular HGB Conc 28.1 GM/DL (32-36); Mean Corpuscular Volume 87.7 FL (87-102); Mean Platelet Volume 10.5 FL (9.6-12.0); Monocytes # 0.9 10*3/uL (0.11-0.8); Monocytes % 12.6 % (1.7-12.7); Neutrophils % 50.9 % (38.7-73.9); Platelet Count 186 T/CUMM (130-400); Red Blood Count 3.98 MC/CUMM (3.8-5.5); Red Cell Distribution Width 18.8 % (9.3-17.3); White Blood Count 6.7 T/CUMM (4-12)
[2022-07-02 05:19] LABS: Hematocrit 34.9 VOL% (35.7-47.0)
[2022-07-02 05:32] LABS: Hypochromia Slight; Microcytosis 1+; Ovalocytes Slight
[2022-07-02 05:48] LABS: Calcium 7.9 MG/DL (8.5-10.1); Potassium 4.3 MMOL/L (3.5-5.1); Risk Ratio 4.37
[2022-07-02] MEDS ORDERED: MAGNESIUM SULF RIDER 2 GM/50 ML PREMIX IV ONE (07:26)
[2022-07-02] MEDS: INSULIN LISPRO 100 UNIT/ML SUBCUT SCH ×4 (08:06→22:02)
[2022-07-02] MEDS ORDERED: SIMVASTATIN 10 MG TABLET PO SCH (09:00)
[2022-07-02] MEDS ORDERED: amLODIPine 10 MG TABLET PO ONE (09:27)
[2022-07-02] MEDS: carvediloL 25 MG TABLET PO SCH ×2 (09:47→22:03)
[2022-07-02] MEDS: GABAPENTIN 300 MG CAPSULE PO SCH ×3 (09:49→22:03)
[2022-07-02] MEDS: cloNIDine 0.1 MG TABLET PO SCH ×2 (09:52→22:02)
[2022-07-02] MEDS ORDERED: FUROSEMIDE 40 MG/4 ML VIAL IV SCH (14:00)
[2022-07-02] MEDS: AMITRIPTYLINE 50 MG TABLET PO SCH (22:03)
[2022-07-02] MEDS: TEMAZEPAM 15 MG CAPSULE PO SCH (22:03)
[2022-07-03] MEDS: ALBUTEROL/IPRATROPIUM 3 ML NEB RESP TX SCH ×2 (00:57→07:23)
[2022-07-03] MEDS: INSULIN LISPRO 100 UNIT/ML SUBCUT SCH ×2 (07:48→11:54)
[2022-07-03 08:04] LABS: Basophils % 0.5 % (0.0-0.8); Eosinophils # 0.3 10*3/uL (0.0-0.87); Hemoglobin 9.9 GM/DL (12.0-16.0); Immature Granulocytes % 0.2 %; Immature Granulocytes Absolute 0.01 #; Lymphocytes # 2.2 10*3/uL (1.4-4.0); Lymphocytes % 34.5 % (21.3-54.2); Mean Corpuscular Volume 81.5 FL (87-102); Mean Platelet Volume 10.5 FL (9.6-12.0); Monocytes # 0.6 10*3/uL (0.11-0.8); Monocytes % 9.3 % (1.7-12.7); Neutrophils % 50.5 % (38.7-73.9); Platelet Count 225 T/CUMM (130-400); Red Blood Count 4.05 MC/CUMM (3.8-5.5); Red Cell Distribution Width 18.8 % (9.3-17.3); White Blood Count 6.4 T/CUMM (4-12)
[2022-07-03 08:27] LABS: Calcium 8.7 MG/DL (8.5-10.1); Osmolality,Calculated 285.4 MOS/KG (273-304); Potassium 3.9 MMOL/L (3.5-5.1)
[2022-07-03] MEDS ORDERED: SIMVASTATIN 10 MG TABLET PO SCH (09:00)
[2022-07-03] MEDS ORDERED: FUROSEMIDE 40 MG/4 ML VIAL IV SCH (09:00)
[2022-07-03] MEDS ORDERED: amLODIPine 10 MG TABLET PO SCH (09:00)
[2022-07-03] MEDS: GABAPENTIN 300 MG CAPSULE PO SCH (09:18)
[2022-07-03] MEDS: carvediloL 25 MG TABLET PO SCH (09:18)
[2022-07-03] MEDS: cloNIDine 0.1 MG TABLET PO SCH (09:18)
[2022-07-03 11:42] VITALS: BP 160/71
[2022-07-03] MEDS ORDERED: SIMVASTATIN 20 MG TABLET PO SCH (21:00)
== END 2022-07-03 13:41 | disposition home health service (06) ==
LOC: N.ED 10:58 → INTOOBSV 15:44 → N.EDINP 15:44 → N.TELES 16:18
PROVIDERS: ADMIT Internal Medicine; ATTEND Internal Medicine